=== PATIENT | male | born 1990 ===

== ENCOUNTER 2018-05-28 19:31 | Emergency (ER) | payer OTHER ==
[2018-05-28 20:12] VITALS: BP 86/54
--- NOTE | 2018-05-28 20:24 | UC ---
Skin Complaint HPI - HPI Summary HPI Summary: right heel ulceration x 5 days blister on right heel from riding a donkey , the blister opened up no the area is red raw , clear discharge no fever, no chills, no hx of DM - History of Current Complaint Chief Complaint: UCSkin Time Seen by Provider: 05/28/18 20:07 Stated Complaint: RT FOOT COMPT Hx Obtained From: Patient Onset/Duration: Gradual Onset, Lasting Days - 5, Still Present Timing: Constant Onset Severity: Moderate Current Severity: Moderate Pain Intensity: 4 Location: Foot (Right) - right heel Character: Pain, Redness Aggravating Factor(s): Touch Alleviating Factor(s): Nothing Associated Signs & Symptoms: Positive: Drainage - clear, Tenderness. Negative: Fever, Chills, Bruising, Red Streaks - Allergy/Home Medications Allergies/Adverse Reactions: Allergies Allergy/AdvReac Type Severity Reaction Status Date / Time No Known Allergies Allergy Verified 05/28/18 20:09 Home Medications: Home Medications Methylphenidate TAB* [Ritalin TAB*] 10 mg PO DAILY PRN 05/28/18 [History Confirmed 05/28/18] Review of Systems Constitutional: Negative Eyes: Negative ENT: Negative Respiratory: Negative Cardiovascular: Negative Is Patient Immunocompromised?: No All Other Systems Reviewed And Are Negative: Yes PMH/Surg Hx/FS Hx/Imm Hx Previously Healthy: Yes - Surgical History Surgical History: Yes Surgery Procedure, Year, and Place: right shoulder - Family History Known Family History: Negative: Diabetes - Social History Alcohol Use: Weekly Substance Use Type: None Smoking Status (MU): Never Smoked Tobacco Physical Exam Triage Information Reviewed: Yes Appearance: Well-Appearing, No Pain Distress, Well-Nourished Vital Signs: Initial Vital Signs Temp 98.9 F 05/28/18 20:04 Pulse 70 05/28/18 20:04 Resp 14 05/28/18 20:04 BP 86/54 05/28/18 20:04 Pulse Ox 99 05/28/18 20:04 Vital Signs Reviewed: Yes Eyes: Positive: Conjunctiva Clear ENT: Positive: Normal ENT inspection, Hearing grossly normal, Pharynx normal Neck: Positive: Supple Respiratory: Positive: Chest non-tender, Lungs clear, Normal breath sounds Cardiovascular: Positive: RRR, No Murmur, Pulses Normal Skin: Positive: Other - right heel ulceration , mild erythema, no discharge Course/Dx - Diagnoses Provider Diagnoses: ulcer right heel Discharge - Sign-Out/Discharge Documenting (check all that apply): Patient Departure - Discharge Plan Condition: Stable Disposition: HOME Prescriptions: Mupirocin 2% CREAM* [Bactroban 2% CREAM*] 1 applic TOPICAL TID #1 tube Patient Education Materials: Acute Wound Care (ED) Referrals: Non Staff,Doctor [Primary Care Provider] - If Needed - Billing Disposition and Condition Condition: STABLE Disposition: Home
== END 2018-05-28 20:25 | disposition home or self-care (01) ==
LOC: UCCORT 19:31
DX: S90.821A Blister (nonthermal), right foot, initial encounter (principal); X58.XXXA Exposure to other specified factors, initial encounter; Y93.9 Activity, unspecified; Y99.9 Unspecified external cause status
CPT/HCPCS: 99202; G0463